=== PATIENT | female | born 1970 | race Caucasian/White ===

== ENCOUNTER 2021-01-02 16:45 | Inpatient (IN) | payer OTHER ==
[~2021-01-02] VITALS: Ht 157.5 cm; Wt 62.1 kg
--- NOTE | 2021-01-02 17:10 | NUR ---
PT BIB EMS FROM [facility]. PT WAS FEELING "WEAK FOR 2 WEEKS WITH ABD TENDERNESS AND BLOOD IN HER URINE" WHEN PT ARRIVED TO ER THIS MORNING HER LABS WERE ABNORMAL: K - 9 BUN - 137 HGB - 3.2 HCT - 12 PT RECIEVED 1 UNIT OF RBC MATTRESS STUFFER AND A SECOND UNIT WAS INFUSING UPON ARRIVAL. PT IS TOLERATING BLOOD TRANSFUSION APPROPRIATELY AT THIS TIME. OTHER MEDS PT RECIEVED MATTRESS STUFFER : 1 LITER BOLUS NS, 2 GRAMS CALCIUM GLUCONATE, 2 AMP BICARB, 10 UNITS INSULIN, 25 D50. PT ALSO HAD SODIUM BICARB INFUSING AT 500PER HOUR UPON ARRIVAL BUT WAS DCd. PT DENIES BLACK OR TARRY STOOLS BUT STATES SHE WAS BEEN VOMITTING AND NOT EATING VERY WELL THE PAST COUPLE WEEKS. EKG COMPLETE. PT CONNECTED TO ALL MONITORING EQUIPMENT
[2021-01-02 17:29] LABS: PH, VENOUS 7.301 pH (7.320-7.420)
[2021-01-02 17:31] LABS: FIO2 ROOM AIR %
--- NOTE | 2021-01-02 17:37 | NUR ---
HENDRICKSON INSERTED. URINE OUTPUT IS BLOODY.
[2021-01-02 17:45] LABS: ALANINE AMINOTRANSFERASE 11 U/L (12-78); ALBUMIN 2.6 g/dL (3.4-5.0); ANION GAP 32 mmol/L (5-15); CALCIUM 8.2 mg/dL (8.5-10.1); CHLORIDE 94 mmol/L (98-107)
[2021-01-02 17:55] LABS: ALKALINE PHOSPHATASE 43 U/L (45-117); BILIRUBIN,TOTAL 0.5 mg/dL (0.2-1.0); TOTAL PROTEIN 5.7 g/dL (6.4-8.2)
--- NOTE | 2021-01-02 17:59 | NUR ---
BLOOD TRANSFUSION COMPLETE. PT TOLERATED WELL. VITALS DOCUMENTED. PT PLACED ON 2 LITERS VIA NC PER OSMANY BLOOD GAS RESULTS
[2021-01-02 18:15] LABS: MICROSCOPIC INDICATED
--- NOTE | 2021-01-02 18:28 | NUR ---
CALL TAKEN FROM LAB. UNABLE TO COMPLETE UDS D/T TOO MUCH BLOOD IN SPECIMEN. NEED TO RECOLLECT. OMEGA NOTIFIED.
[2021-01-02 18:36] LABS: ACETONE, SERUM Moderate(40mg/dL) (Negative)
[2021-01-02] MEDS: SODIUM BICARB 8.4%,50ML SYR. 150 MEQ in DEXTROSE 5% 1,000 ML IV SCH ×2 (18:38→20:01)
[2021-01-02 18:47] LABS: MEAN CORPUSCULAR HEMOGLOBIN 25.8 pg (27.0-34.8); MEAN CORPUSCULAR HGB CONC 33.2 g/dL (32.4-35.8); MEAN PLATELET VOLUME 6.9 fL (7.4-10.4); PLATELET COUNT 350 x10^3/uL (130-400); RED CELL DISTRIBUTION WIDTH 22.7 % (9.6-15.2)
[2021-01-02] MEDS ORDERED: ONDANSETRON 2MG/ML, 2ML IVPush PRN (19:30)
[2021-01-02] MEDS: SODIUM BICARBONATE 8.4% 150 MEQ in DEXTROSE 5% 1,000 ML IV SCH (19:30)
[2021-01-02] MEDS ORDERED: ACETAMINOPHEN 325 MG TABLET PO PRN (19:30)
[2021-01-02] MEDS ORDERED: MELATONIN 5 MG TABLET PO PRN (19:30)
[2021-01-02 20:24] LABS: BAND#(MANUAL) 0.07 x10^3/uL; BANDS%(MANUAL) 1 % (0-7); LYMPHS% (MANUAL) 11 % (22-44); MONOS#(MANUAL) 0.51 x10^3/uL (0.3-2.7); MONOS% (MANUAL) 7 % (2-9); SEG#(MANUAL) 5.91 x10^3/uL (1.8-6.8); SEGS% (MANUAL) 81 % (42-75)
[2021-01-02 20:25] LABS: ANISOCYTOSIS 1+; MICROCYTOSIS 1+
[2021-01-02 20:26] LABS: <PLATELET ESTIMATE> ADEQUATE; <PLT MORPHOLOGY> NORMAL PLT MORPH; CRENATED 1+; POLYCHROMASIA 1+
[2021-01-02 20:27] LABS: OVALOCYTES 1+
[2021-01-02 20:28] LABS: HYPOCHROMIA 1+
[2021-01-03] VITALS (15 sets, daily range): BP systolic 128–160; BP diastolic 68–94
[2021-01-03] MEDS: INSULIN LISPRO 100 UNITS/ML, PEN SQ-INSULIN SCH ×5 (00:15→21:26)
[2021-01-03] MEDS: SODIUM BICARBONATE 8.4% 150 MEQ in DEXTROSE 5% 1,000 ML IV SCH ×3 (02:28→17:34)
[2021-01-03 04:32] LABS: BASOPHILS % (AUTO) 0 % (0-1); EOSINOPHILS % (AUTO) 1 % (1-7); LYMPHOCYTES % (AUTO) 14 % (22-44); MEAN CORPUSCULAR HEMOGLOBIN 25.9 pg (27.0-34.8); MEAN CORPUSCULAR HGB CONC 34.6 g/dL (32.4-35.8); MONOCYTES % (AUTO) 9 % (2-9); NEUTROPHILS % (AUTO) 76 % (42-75); PLATELET COUNT 296 x10^3/uL (130-400); RED BLOOD COUNT 2.39 x10^6/uL (3.82-5.3); RED CELL DISTRIBUTION WIDTH 21.2 % (9.6-15.2)
[2021-01-03 04:47] LABS: ALANINE AMINOTRANSFERASE 11 U/L (12-78); ALBUMIN 2.4 g/dL (3.4-5.0); ANION GAP 21 mmol/L (5-15); CALCIUM 7.1 mg/dL (8.5-10.1); CHLORIDE 92 mmol/L (98-107)
[2021-01-03 04:56] LABS: ALKALINE PHOSPHATASE 39 U/L (45-117); BILIRUBIN,TOTAL 0.4 mg/dL (0.2-1.0); TOTAL PROTEIN 5.2 g/dL (6.4-8.2)
[2021-01-03 07:28] LABS: INTERNATIONAL NORMALIZED RATIO 1.02 (0.93-1.1); PROTHROMBIN TIME 10.9 Seconds (9.6-11.5)
[2021-01-03] MEDS: CEFTRIAXONE 1,000 MG in DEXTROSE 5% 50 ML IVPB SCH (09:29)
[2021-01-03] MEDS: CALCITRIOL 0.25 MCG CAPSULE PO SCH (10:03)
[2021-01-03] MEDS: IRON SUCROSE COMPLEX 100MG/5ML IV SCH (10:03)
[2021-01-03] MEDS: SEVELAMER CARBONATE 800MG TAB PO SCH ×2 (12:00→17:28)
[2021-01-04] MEDS: SODIUM BICARBONATE 8.4% 150 MEQ in DEXTROSE 5% 1,000 ML IV SCH ×2 (00:21→08:40)
[2021-01-04 00:39] VITALS: BP 132/79
[2021-01-04 05:50] LABS: BASOPHILS % (AUTO) 0 % (0-1); EOSINOPHILS % (AUTO) 1 % (1-7); LYMPHOCYTES % (AUTO) 10 % (22-44); MEAN CORPUSCULAR HEMOGLOBIN 27.7 pg (27.0-34.8); MEAN CORPUSCULAR HGB CONC 34.9 g/dL (32.4-35.8); MEAN PLATELET VOLUME 7.2 fL (7.4-10.4); MONOCYTES % (AUTO) 8 % (2-9); NEUTROPHILS % (AUTO) 80 % (42-75); PLATELET COUNT 102 x10^3/uL (130-400); RED BLOOD COUNT 3.15 x10^6/uL (3.82-5.3)
[2021-01-04 06:02] LABS: ANION GAP 9 mmol/L (5-15); CALCIUM 6.5 mg/dL (8.5-10.1); CHLORIDE 93 mmol/L (98-107)
[2021-01-04] MEDS ORDERED: CALCIUM GLUCONATE 9.2 MEQ in SODIUM CHLORIDE 0.9% 100 ML IV ONE (06:30)
[2021-01-04] MEDS ORDERED: MIDAZOLAM 1 MG/ML, 5ML ONE ×2 (08:45→08:46)
[2021-01-04] MEDS ORDERED: FLUMAZENIL 0.1 MG/1 ML, 5ML ONE (08:46)
[2021-01-04] MEDS ORDERED: FENTANYL PF 100 MCG/2ML ONE (08:46)
[2021-01-04] MEDS ORDERED: NALOXONE 1 MG/ML, 2ML ONE (08:47)
[2021-01-04] MEDS: SEVELAMER CARBONATE 800MG TAB PO SCH ×3 (08:49→18:23)
[2021-01-04] MEDS: INSULIN LISPRO 100 UNITS/ML, PEN SQ-INSULIN SCH ×2 (08:49→11:54)
[2021-01-04 09:20] VITALS: BP 150/94
[2021-01-04] MEDS ORDERED: LIDOCAINE 1%, 20ML ONE (09:23)
[2021-01-04] MEDS ORDERED: ERGOCALCIFEROL 50,000 UNIT CAPSULE PO SCH (09:30)
[2021-01-04] MEDS ORDERED: VISIPAQUE 270 MG/ML, 50ML BOTTLE ONE (10:13)
[2021-01-04 11:26] VITALS: BP 149/94
[2021-01-04] MEDS: IRON SUCROSE COMPLEX 100MG/5ML IV SCH (11:55)
[2021-01-04] MEDS: CALCITRIOL 0.25 MCG CAPSULE PO SCH (11:55)
[2021-01-04] MEDS: AMLODIPINE 5 MG TABLET PO SCH (11:55)
[2021-01-04] MEDS: CEFTRIAXONE 1,000 MG in DEXTROSE 5% 50 ML IVPB SCH (18:23)
[2021-01-04 18:52] VITALS: BP 143/89
[2021-01-04 20:14] LABS: ANA SCREEN NEGATIVE (Negative)
[2021-01-05 01:41] VITALS: BP 156/81
[2021-01-05 07:12] LABS: BASOPHILS % (AUTO) 1 % (0-1); EOSINOPHILS % (AUTO) 2 % (1-7); LYMPHOCYTES % (AUTO) 16 % (22-44); MEAN CORPUSCULAR HEMOGLOBIN 27.2 pg (27.0-34.8); MEAN CORPUSCULAR HGB CONC 32.8 g/dL (32.4-35.8); MEAN PLATELET VOLUME 8.4 fL (7.4-10.4); MONOCYTES % (AUTO) 13 % (2-9); NEUTROPHILS % (AUTO) 69 % (42-75); RED CELL DISTRIBUTION WIDTH 19.7 % (9.6-15.2)
[2021-01-05 07:27] LABS: ANION GAP 5 mmol/L (5-15); CHLORIDE 110 mmol/L (98-107); CREATININE 1.66 mg/dL (0.55-1.02)
[2021-01-05] MEDS: SEVELAMER CARBONATE 800MG TAB PO SCH ×3 (08:00→17:27)
[2021-01-05 08:04] LABS: PLATELET COUNT 107 x10^3/uL (130-400)
[2021-01-05 08:06] LABS: <PLATELET ESTIMATE> DECREASED; ANISOCYTOSIS 1+; GIANT PLATELETS 1+; HYPOCHROMIA 1+; LARGE PLATELETS 1+; MICROCYTOSIS 1+; OVALOCYTES 1+; POLYCHROMASIA 1+
[2021-01-05] MEDS: AMLODIPINE 5 MG TABLET PO SCH (12:24)
[2021-01-05] MEDS: CALCITRIOL 0.25 MCG CAPSULE PO SCH (12:24)
[2021-01-05] MEDS: IRON SUCROSE COMPLEX 100MG/5ML IV SCH (12:25)
[2021-01-05 12:27] VITALS: BP 128/91
[2021-01-05] MEDS: CEFTRIAXONE 1,000 MG in DEXTROSE 5% 50 ML IVPB SCH (17:29)
[2021-01-05 18:39] LABS: CREATININE,URINE RANDOM 33.5 mg/dL
[2021-01-05 18:48] LABS: AMPHETAMINE SCREEN, URINE Negative (Negative); BARBITURATE SCREEN, URINE Negative (Negative); BENZODIAZEPINE SCREEN, URINE Positive (Negative); CANNABINOID SCREEN, URINE Positive (Negative); COCAINE SCREEN, URINE Negative (Negative); METHADONE SCREEN, URINE Negative (Negative); OPIATE SCREEN, URINE Negative (Negative)
[2021-01-05 19:19] VITALS: BP 116/77
[2021-01-06 01:16] VITALS: BP 114/76
[2021-01-06 05:35] LABS: BASOPHILS % (AUTO) 1 % (0-1); EOSINOPHILS % (AUTO) 2 % (1-7); LYMPHOCYTES % (AUTO) 17 % (22-44); MEAN CORPUSCULAR HEMOGLOBIN 27.1 pg (27.0-34.8); MEAN CORPUSCULAR HGB CONC 32.7 g/dL (32.4-35.8); MEAN PLATELET VOLUME 8.9 fL (7.4-10.4); MONOCYTES % (AUTO) 13 % (2-9); NEUTROPHILS % (AUTO) 66 % (42-75); RED BLOOD COUNT 3.97 x10^6/uL (3.82-5.3); RED CELL DISTRIBUTION WIDTH 19.6 % (9.6-15.2)
[2021-01-06 05:55] LABS: ALBUMIN 2.9 g/dL (3.4-5.0); ANION GAP 5 mmol/L (5-15); CALCIUM 8.7 mg/dL (8.5-10.1); CHLORIDE 109 mmol/L (98-107)
[2021-01-06 06:00] LABS: ALANINE AMINOTRANSFERASE 14 U/L (12-78); ALKALINE PHOSPHATASE 52 U/L (45-117); BILIRUBIN,TOTAL 0.5 mg/dL (0.2-1.0); CREATININE 0.95 mg/dL (0.55-1.02); TOTAL PROTEIN 6.8 g/dL (6.4-8.2)
[2021-01-06 06:20] VITALS: BP 130/87
[2021-01-06 06:26] LABS: PLATELET COUNT 58 x10^3/uL (130-400)
[2021-01-06] MEDS ORDERED: SODIUM PHOSPHATE 20 MMOL in SODIUM CHLORIDE 0.9% 500 ML IV ONE (06:30)
[2021-01-06] MEDS: IRON SUCROSE COMPLEX 100MG/5ML IV SCH (08:42)
[2021-01-06] MEDS: SEVELAMER CARBONATE 800MG TAB PO SCH ×2 (08:42→12:19)
[2021-01-06] MEDS: CALCITRIOL 0.25 MCG CAPSULE PO SCH (08:42)
[2021-01-06] MEDS: AMLODIPINE 5 MG TABLET PO SCH (08:42)
[2021-01-06] MEDS: POTASSIUM CHLORIDE 20 MEQ TAB.ER.PRT PO SCH ×2 (08:43→17:05)
[2021-01-06] MEDS: DOCUSATE 100 MG CAPSULE PO PRN ×2 (09:50→15:48)
[2021-01-06 12:07] VITALS: BP 118/83
[2021-01-06] MEDS: CEFTRIAXONE 1,000 MG in DEXTROSE 5% 50 ML IVPB SCH (17:05)
[2021-01-06 19:45] VITALS: BP 120/71
[2021-01-07 01:08] VITALS: BP 118/70
[2021-01-07] MEDS: IRON SUCROSE COMPLEX 100MG/5ML IV SCH (08:13)
[2021-01-07] MEDS: CALCITRIOL 0.25 MCG CAPSULE PO SCH (08:14)
[2021-01-07] MEDS: AMLODIPINE 5 MG TABLET PO SCH (08:14)
[2021-01-07 09:59] VITALS: BP 128/82
[2021-01-07] MEDS ORDERED: OXYC5TAB2 PO ×2 (12:02)
[2021-01-07] MEDS ORDERED: DOCU-131 PO (12:02)
[2021-01-07 12:30] VITALS: BP 124/84
[2021-01-07] MEDS: CEFTRIAXONE 1,000 MG in DEXTROSE 5% 50 ML IVPB SCH (17:39)
[2021-01-07 19:02] VITALS: BP 131/84
[2021-01-08 00:48] VITALS: BP 124/76
[2021-01-08 06:34] VITALS: BP 123/78
[2021-01-08] MEDS: AMLODIPINE 5 MG TABLET PO SCH (07:21)
[2021-01-08] MEDS: CALCITRIOL 0.25 MCG CAPSULE PO SCH (07:21)
[2021-01-08 07:23] LABS: BASOPHILS % (AUTO) 1 % (0-1); EOSINOPHILS % (AUTO) 2 % (1-7); LYMPHOCYTES % (AUTO) 13 % (22-44); MEAN CORPUSCULAR HEMOGLOBIN 27.6 pg (27.0-34.8); MEAN CORPUSCULAR HGB CONC 32.4 g/dL (32.4-35.8); MEAN PLATELET VOLUME 7.8 fL (7.4-10.4); MONOCYTES % (AUTO) 13 % (2-9); NEUTROPHILS % (AUTO) 72 % (42-75); PLATELET COUNT 145 x10^3/uL (130-400); RED BLOOD COUNT 3.45 x10^6/uL (3.82-5.3); RED CELL DISTRIBUTION WIDTH 20.4 % (9.6-15.2)
[2021-01-08 07:30] LABS: ALBUMIN 2.6 g/dL (3.4-5.0); ANION GAP 4 mmol/L (5-15); CALCIUM 8.4 mg/dL (8.5-10.1); CHLORIDE 109 mmol/L (98-107); CREATININE 0.68 mg/dL (0.55-1.02)
[2021-01-08] MEDS ORDERED: SODIUM PHOSPHATE 30 MMOL in SODIUM CHLORIDE 0.9% 500 ML IV ONE (13:00)
[2021-01-08 14:00] VITALS: BP 117/77
[2021-01-08 18:52] VITALS: BP 130/78
[2021-01-09 06:40] VITALS: BP 117/76
[2021-01-09] MEDS: CALCITRIOL 0.25 MCG CAPSULE PO SCH (08:01)
[2021-01-09] MEDS: AMLODIPINE 5 MG TABLET PO SCH (08:01)
[2021-01-09 11:36] LABS: CALCIUM 8.3 mg/dL (8.5-10.1); CHLORIDE 110 mmol/L (98-107); CREATININE 0.77 mg/dL (0.55-1.02)
[2021-01-09 11:45] LABS: ANION GAP 4 mmol/L (5-15)
[2021-01-09] MEDS ORDERED: AMLO-150 PO (12:50)
[2021-01-09] MEDS ORDERED: ERGO500017 PO (12:50)
[2021-01-09 12:53] VITALS: BP 132/87
[2021-01-09 14:08] LABS: ALBUMIN 2.6 g/dL (3.4-5.0)
[2021-01-09] MEDS ORDERED: SODIUM PHOSPHATE 30 MMOL in SODIUM CHLORIDE 0.9% 500 ML IV ONE (15:00)
[2021-01-09] MEDS ORDERED: POTASSIUM ACID PHOSPHATE 500 MG TABLET.SOL ONE (15:12)
[2021-01-09] MEDS ORDERED: K-PHOS NEUTRAL 250MG TAB PO SCH (15:30)
[2021-01-10] MEDS ORDERED: K-PHOS NEUTRAL 250MG TAB PO SCH (09:00)
== END 2021-01-09 15:45 | disposition home or self-care (01) | DRG 687 ==
LOC: ED 17:15 → EDIP 18:32 → CCU 19:55 → 4EST 01-03 17:50 → UNDODISIN 01-09 15:40 → DCLOUNGE 01-09 15:40
PROVIDERS: ADMIT Internal Medicine; ATTEND Internal Medicine
PROC: 0T9B70Z Drainage of Bladder with Drainage Device, Via Natural or Artificial Opening (ICD-10-PCS; principal; 2021-01-02)
PROC: 30233N1 Transfusion of Nonautologous Red Blood Cells into Peripheral Vein, Percutaneous Approach (ICD-10-PCS; 2021-01-03)
PROC: 5A1D70Z Performance of Urinary Filtration, Intermittent, Less than 6 Hours Per Day (ICD-10-PCS; 2021-01-03)
PROC: 0T9030Z Drainage of Right Kidney with Drainage Device, Percutaneous Approach (ICD-10-PCS; 2021-01-04)
PROC: 0T9130Z Drainage of Left Kidney with Drainage Device, Percutaneous Approach (ICD-10-PCS; 2021-01-04)
PROC: 5A1D70Z Performance of Urinary Filtration, Intermittent, Less than 6 Hours Per Day (ICD-10-PCS; 2021-01-04)
PROC: 02HV33Z Insertion of Infusion Device into Superior Vena Cava, Percutaneous Approach (ICD-10-PCS; 2021-01-05)
PROC: B5181ZA Fluoroscopy of Superior Vena Cava using Low Osmolar Contrast, Guidance (ICD-10-PCS; 2021-01-05)
PROC: B548ZZA Ultrasonography of Superior Vena Cava, Guidance (ICD-10-PCS; 2021-01-05)
PROC: 5A1D70Z Performance of Urinary Filtration, Intermittent, Less than 6 Hours Per Day (ICD-10-PCS; 2021-01-05)
DX: C67.9 Malignant neoplasm of bladder, unspecified (principal); E87.4 Mixed disorder of acid-base balance; N13.6 Pyonephrosis; N17.9 Acute kidney failure, unspecified; N25.81 Secondary hyperparathyroidism of renal origin; D50.9 Iron deficiency anemia, unspecified; D69.6 Thrombocytopenia, unspecified; E55.9 Vitamin D deficiency, unspecified; E86.1 Hypovolemia; I12.9 Hypertensive chronic kidney disease with stage 1 through stage 4 chronic kidney disease, or unspecified chronic kidney disease; L40.9 Psoriasis, unspecified; B95.5 Unspecified streptococcus as the cause of diseases classified elsewhere; N18.9 Chronic kidney disease, unspecified; Q80.9 Congenital ichthyosis, unspecified; Z87.891 Personal history of nicotine dependence
CPT/HCPCS: 36415; 50432; 84145; 99291; J3490; 36430; 36556; 71045; 74176; 76770; 76937; 80048; 80053; 80069; 80307; 80320; 81001; 82010; 82040; 82306; 82550; 82570; 82728; 82803; 82962; 83516; 83520; 83540; 83550; 83605; 83615; 83735; 83970; 84100; 84133; 84156; 84300; 84443; 85014; 85018; 85025; 85049; 85610; 86038; 86160; 86162; 86225; 86256; 86705; 86706; 86850; 86900; 86923; 87040; 87081; 87086; 87340; 88112; 90935; 93005; C1894; G0378; J0610; J0696; J1756; J2250; J3010; J7070; Q9966; C1729; C1769; G0480; J1642; J1815; J2310; J7040; P9016

== ENCOUNTER 2021-02-02 13:56 | Inpatient (IN) | payer MEDICAID ==
[~2021-02-02] VITALS: Ht 157.5 cm; Wt 56.1 kg
[~2021-02-02 13:56] MED LIST: AMLO-150 PO; DOCU-131 PO; ERGO500017 PO; OXYC5TAB2 PO
--- NOTE | 2021-02-02 15:07 | NUR ---
urine sample sent from left nephrostomy tube. right nephrostomy without drainage at this time
--- NOTE | 2021-02-02 15:09 | NUR ---
report to carleen edwards
[2021-02-02] MEDS ORDERED: HYDROmorphone 2 MG/ML, 1ML ONE (15:10)
--- NOTE | 2021-02-02 15:17 | NUR ---
md in room for eval. dilaudid 1 mg iv for pain. vss. as
[2021-02-02 15:24] LABS: MICROSCOPIC INDICATED
[2021-02-02] MEDS ORDERED: HYDROmorphone 1 MG/ML, 1ML INJ IV ONE (15:30)
[2021-02-02] MEDS ORDERED: ONDANSETRON 2MG/ML, 2ML IVPush PRN (15:30)
[2021-02-02] MEDS ORDERED: ACETAMINOPHEN 325 MG TABLET PO PRN (15:30)
[2021-02-02] MEDS ORDERED: CEFTRIAXONE 1,000 MG in DEXTROSE 5% 50 ML IV SCH (15:30)
[2021-02-02] MEDS ORDERED: ONDANSETRON ODT 4 MG PO PRN (15:30)
[2021-02-02] MEDS ORDERED: VANCOMYCIN PER PHARMACY MC PRN (15:30)
[2021-02-02 15:42] LABS: TROPONIN I < 0.015 ng/mL (0.000-0.045)
[2021-02-02 17:38] VITALS: BP 122/80
[2021-02-02] MEDS ORDERED: PHARMACOKINETIC MONITORING MC PRN (18:00)
[2021-02-02] MEDS ORDERED: VANCOMYCIN 1,300 MG in SODIUM CHLORIDE 0.9% 250 ML IV ONE (18:00)
[2021-02-02] MEDS: SODIUM CHLORIDE 0.9% 1,000 ML IV SCH (19:41)
[2021-02-02] MEDS: KETOROLAC 30 MG/1 ML IV PRN (19:47)
[2021-02-02 20:08] VITALS: BP 99/61
[2021-02-02] MEDS: HEPARIN 5,000 UNITS/ML, 1ML SQ SCH (20:09)
[2021-02-03 02:12] VITALS: BP 108/65
[2021-02-03] MEDS: VANCOMYCIN 1,100 MG in SODIUM CHLORIDE 0.9% 250 ML IV SCH ×2 (04:23→22:16)
[2021-02-03] MEDS: KETOROLAC 30 MG/1 ML IV PRN ×2 (04:28→10:44)
[2021-02-03 05:17] LABS: BASOPHILS % (AUTO) 1 % (0-1); EOSINOPHILS % (AUTO) 5 % (1-7); LYMPHOCYTES % (AUTO) 25 % (22-44); MEAN CORPUSCULAR HEMOGLOBIN 28.4 pg (27.0-34.8); MEAN CORPUSCULAR HGB CONC 32.8 g/dL (32.4-35.8); MONOCYTES % (AUTO) 7 % (2-9); NEUTROPHILS % (AUTO) 62 % (42-75); PLATELET COUNT 258 x10^3/uL (130-400); RED BLOOD COUNT 3.53 x10^6/uL (3.82-5.3); RED CELL DISTRIBUTION WIDTH 19.4 % (9.6-15.2)
[2021-02-03 05:29] LABS: ANION GAP 6 mmol/L (5-15); CALCIUM 8.1 mg/dL (8.5-10.1); CHLORIDE 107 mmol/L (98-107)
[2021-02-03 05:30] LABS: CREATININE 0.62 mg/dL (0.55-1.02)
[2021-02-03 07:22] VITALS: BP 121/75
[2021-02-03] MEDS: ERGOCALCIFEROL 50,000 UNIT CAPSULE PO SCH ×2 (08:37→08:45)
[2021-02-03] MEDS: HEPARIN 5,000 UNITS/ML, 1ML SQ SCH ×2 (08:37→21:36)
[2021-02-03] MEDS ORDERED: AMLODIPINE 5 MG TABLET PO SCH (09:00)
[2021-02-03] MEDS ORDERED: VISIPAQUE 270 MG/ML, 50ML BOTTLE ONE (11:03)
[2021-02-03] MEDS ORDERED: VANCOMYCIN 1,100 MG in SODIUM CHLORIDE 0.9% 250 ML IV SCH (12:00)
[2021-02-03 12:59] VITALS: BP 105/68
[2021-02-03] MEDS: SODIUM CHLORIDE 0.9% 1,000 ML IV SCH (15:23)
[2021-02-03] MEDS: CEFTRIAXONE 2,000 MG in DEXTROSE 5% 50 ML IV SCH (15:50)
[2021-02-03] MEDS ORDERED: HYDROcodone/APAP 5/325 TABLET PO PRN (18:30)
[2021-02-03] MEDS ORDERED: HYDROcodone/APAP 5/325 TABLET ONE (18:33)
[2021-02-03] MEDS ORDERED: KETOROLAC 30 MG/1 ML ONE (19:19)
[2021-02-03] MEDS ORDERED: KETOROLAC 15 MG/1ML IVPush PRN (19:30)
[2021-02-03] MEDS: KETOROLAC 30 MG/1 ML IVPush PRN (19:45)
[2021-02-03 20:14] VITALS: BP 143/86
[2021-02-03] MEDS: AMLODIPINE 5 MG TABLET PO SCH (21:35)
[2021-02-04] MEDS: OXYcodone IR 5MG TABLET PO PRN ×3 (00:46→22:15)
[2021-02-04 01:52] VITALS: BP 128/68
[2021-02-04 05:51] LABS: ALANINE AMINOTRANSFERASE 13 U/L (12-78); ALBUMIN 2.9 g/dL (3.4-5.0); ANION GAP 6 mmol/L (5-15); CALCIUM 8.1 mg/dL (8.5-10.1); CHLORIDE 110 mmol/L (98-107)
[2021-02-04 05:54] LABS: ALKALINE PHOSPHATASE 51 U/L (45-117); BILIRUBIN,TOTAL 0.3 mg/dL (0.2-1.0); CREATININE 0.61 mg/dL (0.55-1.02); TOTAL PROTEIN 7.1 g/dL (6.4-8.2)
[2021-02-04 06:00] LABS: BASOPHILS % (AUTO) 1 % (0-1); EOSINOPHILS % (AUTO) 6 % (1-7); LYMPHOCYTES % (AUTO) 22 % (22-44); MEAN CORPUSCULAR HEMOGLOBIN 28.4 pg (27.0-34.8); MEAN CORPUSCULAR HGB CONC 32.5 g/dL (32.4-35.8); MEAN PLATELET VOLUME 8.2 fL (7.4-10.4); MONOCYTES % (AUTO) 8 % (2-9); NEUTROPHILS % (AUTO) 64 % (42-75); PLATELET COUNT 255 x10^3/uL (130-400); RED BLOOD COUNT 3.51 x10^6/uL (3.82-5.3); RED CELL DISTRIBUTION WIDTH 19.5 % (9.6-15.2)
[2021-02-04 06:37] VITALS: BP 117/74
[2021-02-04] MEDS: KETOROLAC 30 MG/1 ML IVPush PRN ×3 (07:09→22:15)
[2021-02-04] MEDS: HEPARIN 5,000 UNITS/ML, 1ML SQ SCH ×2 (08:00→20:00)
[2021-02-04] MEDS: SODIUM CHLORIDE 0.9% 1,000 ML IV SCH (09:16)
[2021-02-04 13:16] VITALS: BP 116/74
[2021-02-04] MEDS: CEFTRIAXONE 2,000 MG in DEXTROSE 5% 50 ML IV SCH (15:49)
[2021-02-04] MEDS: VANCOMYCIN 1,300 MG in SODIUM CHLORIDE 0.9% 250 ML IV SCH (17:33)
[2021-02-04 20:00] VITALS: BP_SYST 132; BP_SYST 134; BP_DIAS 100; BP_DIAS 81
[2021-02-04] MEDS: AMLODIPINE 5 MG TABLET PO SCH (20:35)
[2021-02-05] MEDS: SODIUM CHLORIDE 0.9% 1,000 ML IV SCH (02:36)
[2021-02-05 04:37] VITALS: BP 138/85
[2021-02-05 05:45] LABS: CALCIUM 8.6 mg/dL (8.5-10.1); CHLORIDE 108 mmol/L (98-107)
[2021-02-05 05:51] LABS: ALANINE AMINOTRANSFERASE 13 U/L (12-78); ALKALINE PHOSPHATASE 54 U/L (45-117); ANION GAP 5 mmol/L (5-15); BILIRUBIN,TOTAL 0.3 mg/dL (0.2-1.0); CREATININE 0.53 mg/dL (0.55-1.02); TOTAL PROTEIN 7.5 g/dL (6.4-8.2)
[2021-02-05 05:59] LABS: BASOPHILS % (AUTO) 1 % (0-1); EOSINOPHILS % (AUTO) 6 % (1-7); LYMPHOCYTES % (AUTO) 16 % (22-44); MEAN CORPUSCULAR HEMOGLOBIN 28.5 pg (27.0-34.8); MEAN CORPUSCULAR HGB CONC 32.9 g/dL (32.4-35.8); MEAN PLATELET VOLUME 8.1 fL (7.4-10.4); MONOCYTES % (AUTO) 6 % (2-9); NEUTROPHILS % (AUTO) 71 % (42-75); PLATELET COUNT 267 x10^3/uL (130-400); RED CELL DISTRIBUTION WIDTH 19.6 % (9.6-15.2)
[2021-02-05] MEDS: HEPARIN 5,000 UNITS/ML, 1ML SQ SCH (08:00)
[2021-02-05] MEDS: OXYcodone IR 5MG TABLET PO PRN (08:36)
[2021-02-05] MEDS: VANCOMYCIN 1,300 MG in SODIUM CHLORIDE 0.9% 250 ML IV SCH (11:04)
[2021-02-05 11:09] VITALS: BP 158/98
[2021-02-05] MEDS: KETOROLAC 30 MG/1 ML IVPush PRN (11:20)
[2021-02-05] MEDS ORDERED: AMLO-150 PO (13:37)
[2021-02-05] MEDS ORDERED: HYDR-2214 PO (13:37)
[2021-02-05] MEDS ORDERED: AMOX1TAB64 PO (15:09)
== END 2021-02-05 16:37 | disposition home or self-care (01) | DRG 466 ==
LOC: ED 14:29 → EDIP 15:20 → 4NW 15:58
PROVIDERS: ADMIT Internal Medicine; ATTEND Hospitalist
PROC: 0T913ZZ Drainage of Left Kidney, Percutaneous Approach (ICD-10-PCS; principal; 2021-02-02)
DX: N99.521 Infection of incontinent external stoma of urinary tract (principal); E43 Unspecified severe protein-calorie malnutrition; N17.9 Acute kidney failure, unspecified; D69.6 Thrombocytopenia, unspecified; E87.2 Acidosis; N12 Tubulo-interstitial nephritis, not specified as acute or chronic; N25.81 Secondary hyperparathyroidism of renal origin; C67.9 Malignant neoplasm of bladder, unspecified; D50.9 Iron deficiency anemia, unspecified; R31.9 Hematuria, unspecified; E55.9 Vitamin D deficiency, unspecified; Y83.8 Other surgical procedures as the cause of abnormal reaction of the patient, or of later complication, without mention of misadventure at the time of the procedure; Y82.8 Other medical devices associated with adverse incidents; F12.90 Cannabis use, unspecified, uncomplicated; F17.200 Nicotine dependence, unspecified, uncomplicated; N13.9 Obstructive and reflux uropathy, unspecified; Z80.3 Family history of malignant neoplasm of breast; Z85.3 Personal history of malignant neoplasm of breast; Z85.51 Personal history of malignant neoplasm of bladder; Q80.9 Congenital ichthyosis, unspecified; Y92.89 Other specified places as the place of occurrence of the external cause; Z68.22 Body mass index [BMI] 22.0-22.9, adult; Z79.899 Other long term (current) drug therapy
CPT/HCPCS: 36415; 50431; 71270; 74177; 76000; 80048; 80053; 80202; 81001; 84484; 84703; 85025; 87086; 96374; 96375; G0378; J0696; J1170; J1644; J1885; J3370; Q9966; J7030; J7050

== ENCOUNTER 2021-03-09 06:31 | Day surgery (SDC) | payer OTHER, MEDICAID ==
[~2021-03-09] VITALS: Ht 157.5 cm; Wt 53.8 kg
[~2021-03-09 06:31] MED LIST changes: +AMOX1TAB64 PO; +HYDR-2214 PO
[2021-03-09 07:14] VITALS: BP 111/75
[2021-03-09] MEDS ORDERED: FENTANYL PF 100 MCG/2ML ONE (08:03)
[2021-03-09] MEDS ORDERED: MIDAZOLAM 1 MG/ML, 5ML ONE (08:03)
[2021-03-09] MEDS ORDERED: NALOXONE 1 MG/ML, 2ML ONE (08:03)
[2021-03-09] MEDS ORDERED: FLUMAZENIL 0.1 MG/1 ML, 5ML ONE (08:03)
[2021-03-09] MEDS ORDERED: LIDOCAINE 1%, 10ML ONE (08:19)
== END 2021-03-09 10:25 | disposition home or self-care (01) ==
LOC: OUT 06:31
PROVIDERS: ATTEND Internal Medicine
DX: R59.0 Localized enlarged lymph nodes (principal); C67.2 Malignant neoplasm of lateral wall of bladder; I10 Essential (primary) hypertension; Q80.9 Congenital ichthyosis, unspecified; Z79.891 Long term (current) use of opiate analgesic; Z79.899 Other long term (current) drug therapy; Z87.891 Personal history of nicotine dependence; Z98.890 Other specified postprocedural states; Z85.3 Personal history of malignant neoplasm of breast
CPT/HCPCS: 38505; 77012; 88305; 88341; 88342; 99156; 99157; J2250; J3010; J2310

== ENCOUNTER 2021-03-21 06:56 | Day surgery (SDC) | payer OTHER, MEDICAID ==
[~2021-03-21] VITALS: Ht 157.5 cm; Wt 58.5 kg
[2021-03-21 07:20] VITALS: BP 116/78
== END 2021-03-21 11:00 | disposition home or self-care (01) ==
LOC: OUT 06:56
PROVIDERS: ATTEND Specialist
DX: C67.2 Malignant neoplasm of lateral wall of bladder (principal); N13.5 Crossing vessel and stricture of ureter without hydronephrosis; I10 Essential (primary) hypertension; Z79.891 Long term (current) use of opiate analgesic; Z79.899 Other long term (current) drug therapy; Z85.3 Personal history of malignant neoplasm of breast; Z87.891 Personal history of nicotine dependence